=== PATIENT | male | born 1995 | race Caucasian/White ===

== ENCOUNTER → 2019-08-30 10:52 | Outpatient (CLI) | payer OTHER, SELFPAY ==
--- NOTE | 2019-08-30 10:56 | DI.RAD.S_ITS ---
PROCEDURE: XR CHEST 2V INDICATIONS: cough, hx of COPD, r/o pneumonia TECHNIQUE: 2 views of the chest were acquired. COMPARISON: None. FINDINGS: Surgical changes and devices: None. Lungs and pleura: Lungs are clear. No pleural effusions or pneumothorax. Mediastinum: Mediastinal contours are normal. Heart size is normal. Bones and chest wall: No suspicious bony abnormalities. Soft tissues appear unremarkable. IMPRESSION: No acute cardiopulmonary disease. Dictated by: Josi Tellez M.D. on 08/30/2019 at 11:39 Approved by: Josi Tellez M.D. on 08/30/2019 at 11:39
== END ==
PROVIDERS: Visit Provider Physician Assistant
DX: J40 Bronchitis, not specified as acute or chronic (principal); R05 Cough; J98.01 Acute bronchospasm; R06.2 Wheezing; Z87.09 Personal history of other diseases of the respiratory system
CPT/HCPCS: 71046; 87798